=== PATIENT | female | born 1935 | race Caucasian/White ===

== ENCOUNTER 2021-10-04 14:13 | Emergency (ER) | payer OTHER ==
[~2021-10-04] VITALS: Ht 167.6 cm; Wt 66.7 kg
[2021-10-04] MEDS ORDERED: AMOX1TAB5 PO (16:49)
== END 2021-10-04 17:07 | disposition home or self-care (01) ==
LOC: ER 14:13
DX: S80.811A Abrasion, right lower leg, initial encounter (principal); W19.XXXA Unspecified fall, initial encounter; Y93.89 Activity, other specified; Y92.520 Airport as the place of occurrence of the external cause; Z91.041 Radiographic dye allergy status